=== PATIENT | male | born 2000 | race Caucasian/White ===

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

== ENCOUNTER 2019-03-29 20:22 | Emergency (ER) | payer SELFPAY ==
[2019-03-29 21:07] LABS: ANION GAP 14.6; CHLORIDE,CL 99 mmol/L (101-111); SODIUM,NA 134 mmol/L (135-145)
[2019-03-29] MEDS ORDERED: Sodium Chloride 0.9% 1,000 ML IV ONE (21:08)
--- NOTE | 2019-03-29 21:12 | EDM.PDOC ---
ED HPI GENERAL MEDICAL PROBLEM - General Chief Complaint: Fever Stated Complaint: FEVER Time Seen by Provider: 03/29/19 20:58 Source of Information: Reports: Patient History Limitations: Reports: No Limitations - History of Present Illness INITIAL COMMENTS - FREE TEXT/NARRATIVE: This 18 yo male patient reports to the ED with generalized body aches and a fever. The patient reports his symptoms started 2 days ago and have been getting worse. The patient reports he took Tylenol last night, but has not taken anything today. The patient reports a cough, sore throat and lower back aching. The patient has been attempting to increase his oral fluid intake and using a moist cloth on his forehead to control the temperature. 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 [No Known Home Meds] 03/29/19 [History] Past Medical History Other HEENT History: Sore throat Cardiovascular History: Reports: None Respiratory History: Reports: None Gastrointestinal History: Reports: None Genitourinary History: Reports: None Other Musculoskeletal History: knee problem. Masses to left hip Neurological History: Reports: None Psychiatric History: Reports: Addiction, Anxiety, Depression Endocrine/Metabolic History: Reports: None Hematologic History: Reports: None Immunologic History: Reports: None Oncologic (Cancer) History: Reports: None Dermatologic History: Reports: None - Infectious Disease History Infectious Disease History: Reports: None - Past Surgical History HEENT Surgical History: Reports: Tonsillectomy Social & Family History - Family History Family Medical History: Noncontributory - Tobacco Use Smoking Status *Q: Current Every Day Smoker Years of Tobacco use: 2 Packs/Tins Daily: 0.5 Second Hand Smoke Exposure: Yes - Caffeine Use Caffeine Use: Reports: Coffee, Soda, Tea - Alcohol Use Days Per Week of Alcohol Use: 7 Number of Drinks Per Day: 1 Total Drinks Per Week: 7 - Recreational Drug Use Recreational Drug Use: Yes Recreational Drug Type: Reports: Marijuana/Hashish Recreational Drug Use Frequency: Daily - Sexual History Sexual History: Reports: Sexually Active - Living Situation & Occupation Living situation: Reports: with Family Occupation: Student ED ROS GENERAL - Review of Systems Review Of Systems: ROS reveals no pertinent complaints other than HPI. ED EXAM, GENERAL - Physical Exam Exam: See Below Exam Limited By: No Limitations General Appearance: Alert, WD/WN, Mild Distress Eye Exam: Bilateral Eye: EOMI, Normal Inspection, PERRL Ears: Normal External Exam, Normal Canal, Hearing Grossly Normal, Normal TMs Nose: Normal Inspection, Normal Mucosa, No Blood Throat/Mouth: Normal Lips, Normal Teeth, Normal Gums, Normal Voice, No Airway Compromise, Inflammation (posterior pharynx) Head: Atraumatic, Normocephalic Neck: Normal Inspection, Supple, Non-Tender, Full Range of Motion Respiratory/Chest: No Respiratory Distress, Lungs Clear, Normal Breath Sounds, No Accessory Muscle Use, Chest Non-Tender Cardiovascular: Normal Peripheral Pulses, Regular Rate, Rhythm, No Edema, No Gallop, No JVD, No Murmur, No Rub GI/Abdominal: Normal Bowel Sounds, Soft, Non-Tender, No Organomegaly, No Distention, No Abnormal Bruit, No Mass (Male) Exam: Deferred Rectal (Males) Exam: Deferred Extremities: Normal Inspection, Normal Range of Motion, Non-Tender, Normal Capillary Refill, No Pedal Edema Neurological: Alert, Oriented, CN II-XII Intact, Normal Cognition, Normal Gait, Normal Reflexes, No Motor/Sensory Deficits Psychiatric: Normal Affect, Normal Mood Skin Exam: Dry, Intact, Normal Color, No Rash, Increased Warmth Lymphatic: No Adenopathy Course - Vital Signs Last Recorded V/S: Last Vital Signs Temp 39.9 C H 03/29/19 20:27 Pulse 128 H 03/29/19 20:27 Resp 18 03/29/19 20:27 BP 160/69 H 03/29/19 20:27 Pulse Ox 96 03/29/19 20:27 - Orders/Labs/Meds Orders: Active Orders 24 hr Category Date Time Status CULTURE STREP A CONFIRMATION [RM] Stat Lab 03/29/19 20:53 Results STREP SCRN A RAPID W CULT CONF [RM] Stat Lab 03/29/19 20:53 Results Labs: Laboratory Tests 03/29/19 03/29/19 03/29/19 Range/Units 20:30 20:30 20:50 WBC 7.2 (5.0-10.0) 10^3/uL RBC 5.34 (4.6-6.2) 10^6/uL Hgb 16.1 (14.0-18.0) g/dL Hct 46.0 (40.0-54.0) % MCV 86.1 (80-100) fL MCH 30.1 (27.0-34.0) pg MCHC 35.0 (33.0-35.0) g/dL Plt Count 231 (150-450) 10^3/uL Neut % (Auto) 56.2 (42.2-75.2) % Lymph % (Auto) 21.4 (20.5-50.1) % [place] % (Auto) 22.1 H (2-8) % Eos % (Auto) 0.0 L (1.0-3.0) % Baso % (Auto) 0.3 (0.0-1.0) % Sodium 134 L (135-145) mmol/L Potassium 3.6 (3.6-5.0) mmol/L Chloride 99 L (101-111) mmol/L Carbon Dioxide 24.0 (21.0-31.0) mmol/L Anion Gap 14.6 BUN 12 (7-18) mg/dL Creatinine 1.0 (0.6-1.3) mg/dL Est Cr Clr Drug Dosing 138.14 mL/min Estimated GFR (MDRD) > 60 BUN/Creatinine Ratio 12.00 Glucose 94 (74-105) mg/dL Calcium 9.0 (8.4-10.2) mg/dl Total Bilirubin 0.7 (0.2-1.0) mg/dL AST 33 (10-42) IU/L ALT 30 (10-60) IU/L Alkaline Phosphatase 55 (42-121) IU/L Total Protein 8.1 (6.7-8.2) g/dl Albumin 4.8 (3.2-5.5) g/dl Globulin 3.3 Albumin/Globulin Ratio 1.45 Urine Color Yellow (YELLOW) Urine Appearance Slightly cloudy (CLEAR) Urine pH 6.0 (5.0-9.0) Ur Specific [place] 1.020 (1.005-1.030) Urine Protein Trace H (NEGATIVE) Urine Glucose (UA) Negative (NEGATIVE) Urine Ketones 15 H (NEGATIVE) Urine Occult Blood Trace-intact H (NEGATIVE) Urine Nitrite Negative (NEGATIVE) Urine Bilirubin Small H (NEGATIVE) Urine Urobilinogen 1.0 (0.2-1.0) mg/dL Ur Leukocyte Esterase Negative (NEGATIVE) Urine RBC 0-5 /HPF Urine WBC 5-10 H (0-5/HPF) /HPF Ur Epithelial Cells Few (NOT SEEN) /HPF Urine Bacteria Moderate H (0-FEW/HPF) /HPF Urine Mucus Moderate H (NOT SEEN) /LPF Urine Opiates Screen (NEGATIVE) Ur Oxycodone Screen (NEGATIVE) Urine Methadone Screen (NEGATIVE) Ur Barbiturates Screen (NEGATIVE) U Tricyclic Antidepress (NEGATIVE) Ur Phencyclidine Scrn (NEGATIVE) Ur Amphetamine Screen (NEGATIVE) U Methamphetamines Scrn (NEGATIVE) Urine MDMA Screen (NEGATIVE) U Benzodiazepines Scrn (NEGATIVE) Urine Cocaine Screen (NEGATIVE) U Marijuana (THC) Screen (NEGATIVE) 03/29/19 Range/Units 20:50 WBC (5.0-10.0) 10^3/uL RBC (4.6-6.2) 10^6/uL Hgb (14.0-18.0) g/dL Hct (40.0-54.0) % MCV (80-100) fL MCH (27.0-34.0) pg MCHC (33.0-35.0) g/dL Plt Count (150-450) 10^3/uL Neut % (Auto) (42.2-75.2) % Lymph % (Auto) (20.5-50.1) % [place] % (Auto) (2-8) % Eos % (Auto) (1.0-3.0) % Baso % (Auto) (0.0-1.0) % Sodium (135-145) mmol/L Potassium (3.6-5.0) mmol/L Chloride (101-111) mmol/L Carbon Dioxide (21.0-31.0) mmol/L Anion Gap BUN (7-18) mg/dL Creatinine (0.6-1.3) mg/dL Est Cr Clr Drug Dosing mL/min Estimated GFR (MDRD) BUN/Creatinine Ratio Glucose (74-105) mg/dL Calcium (8.4-10.2) mg/dl Total Bilirubin (0.2-1.0) mg/dL AST (10-42) IU/L ALT (10-60) IU/L Alkaline Phosphatase (42-121) IU/L Total Protein (6.7-8.2) g/dl Albumin (3.2-5.5) g/dl Globulin Albumin/Globulin Ratio Urine Color (YELLOW) Urine Appearance (CLEAR) Urine pH (5.0-9.0) Ur Specific [place] (1.005-1.030) Urine Protein (NEGATIVE) Urine Glucose (UA) (NEGATIVE) Urine Ketones (NEGATIVE) Urine Occult Blood (NEGATIVE) Urine Nitrite (NEGATIVE) Urine Bilirubin (NEGATIVE) Urine Urobilinogen (0.2-1.0) mg/dL Ur Leukocyte Esterase (NEGATIVE) Urine RBC /HPF Urine WBC (0-5/HPF) /HPF Ur Epithelial Cells (NOT SEEN) /HPF Urine Bacteria (0-FEW/HPF) /HPF Urine Mucus (NOT SEEN) /LPF Urine Opiates Screen Negative (NEGATIVE) Ur Oxycodone Screen Positive H (NEGATIVE) Urine Methadone Screen Negative (NEGATIVE) Ur Barbiturates Screen Negative (NEGATIVE) U Tricyclic Antidepress Negative (NEGATIVE) Ur Phencyclidine Scrn Negative (NEGATIVE) Ur Amphetamine Screen Negative (NEGATIVE) U Methamphetamines Scrn Negative (NEGATIVE) Urine MDMA Screen Negative (NEGATIVE) U Benzodiazepines Scrn Negative (NEGATIVE) Urine Cocaine Screen Negative (NEGATIVE) U Marijuana (THC) Screen Positive H (NEGATIVE) Meds: Medications Discontinued Medications Generic Name Dose Route Start Last Admin Trade Name Freq PRN Reason Stop Dose Admin Sodium Chloride 1,000 mls @ 999 mls/hr 03/29/19 21:08 03/29/19 21:11 Normal Saline IV 03/29/19 22:08 999 mls/hr .BOLUS ONE Administration Ketorolac Tromethamine 30 mg 03/29/19 21:17 03/29/19 21:20 Toradol IVPUSH 03/29/19 21:18 30 mg ONETIME ONE Administration - Re-Assessments/Exams Free Text/Narrative Re-Assessment/Exam: 03/29/19 21:18 After reviewing the patient's lab results, the patient was questioned about what other medications he took for symptom relief. Initially, the patient repeated that he had not taken anything else. The patient was advised that his drug screen tested positive for Oxycodone. The patient then remembered that he took one of his mom's pills due to his hip pain. Departure - Departure Time of Disposition: 22:50 Disposition: Home, Self-Care 01 Condition: Fair Clinical Impression: Abdominal pain Qualifiers: Abdominal location: generalized Qualified Code(s): R10.84 - Generalized abdominal pain - Discharge Information *PRESCRIPTION DRUG MONITORING PROGRAM REVIEWED*: Not Applicable *COPY OF PRESCRIPTION DRUG MONITORING REPORT IN PATIENT STEPHANIA: Not Applicable Instructions: Abdominal Pain, Adult, [id number] Forms: ED Department Discharge Care Plan Goals: The patient was advised of the examination, lab and CT results during the visit. The patient was encouraged to continue to increase his oral fluid intake. The patient may taken Tylenol and ibuprofen for temporary symptom relief. If the patient has any additional symptoms or concerns, the patient should either return to the emergency department or visit his primary care facility. - My Orders Last 24 Hours: My Active Orders 03/29/19 20:53 CULTURE STREP A CONFIRMATION [RM] Stat STREP SCRN A RAPID W CULT CONF [RM] Stat - Assessment/Plan Last 24 Hours: My Active Orders 03/29/19 20:53 CULTURE STREP A CONFIRMATION [RM] Stat STREP SCRN A RAPID W CULT CONF [RM] Stat
[2019-03-29] MEDS ORDERED: Ketorolac 30 MG/ML SDV IVPUSH ONE (21:17)
[2019-03-29 23:00] VITALS: BP 128/57; PULSE 100
== END 2019-03-29 23:05 | disposition home or self-care (01) ==
LOC: DL.ED 20:22
DX: R10.84 Generalized abdominal pain (principal); F17.210 Nicotine dependence, cigarettes, uncomplicated; Z88.1 Allergy status to other antibiotic agents
CPT/HCPCS: 36415; 74176; 80053; 80305; 81001; 85025; 87081; 87430; 87804; 96361; 96374; 99283; J1885; J7030

== ENCOUNTER 2019-04-27 11:37 | Emergency (ER) | payer OTHER, BC ==
[2019-04-27 12:03] VITALS: BP 144/62; PULSE 88
--- NOTE | 2019-04-27 12:13 | EDM.PDOC ---
ED HPI GENERAL MEDICAL PROBLEM - General Chief Complaint: Skin Complaint Stated Complaint: BURN R INDEX FINGER Time Seen by Provider: 04/27/19 12:13 Source of Information: Reports: Patient, RN, RN Notes Reviewed History Limitations: Reports: No Limitations - History of Present Illness INITIAL COMMENTS - FREE TEXT/NARRATIVE: Pt presents to ER from home by POV with c/ that he burned his right index finger on hot oil last night while working at [employer]. Patient states he put put triple antibiotic ointment and gauze dressing to the site last night. He states he came to the ER because he doesn't want to get it infected. Pt rates the pain 12/01. He took nothing for the pain so far. Last Tetanus vaccine >10yrs ago per pt. 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 [No Known Home Meds] 03/29/19 [History] Past Medical History Other HEENT History: Sore throat Cardiovascular History: Reports: None Respiratory History: Reports: None Gastrointestinal History: Reports: None Genitourinary History: Reports: None Other Musculoskeletal History: knee problem. Masses to left hip Neurological History: Reports: None Psychiatric History: Reports: Addiction, Anxiety, Depression Endocrine/Metabolic History: Reports: None Hematologic History: Reports: None Immunologic History: Reports: None Oncologic (Cancer) History: Reports: None Dermatologic History: Reports: None - Infectious Disease History Infectious Disease History: Reports: None - Past Surgical History HEENT Surgical History: Reports: Tonsillectomy GI Surgical History: Reports: Appendectomy Social & Family History - Family History Family Medical History: Noncontributory - Tobacco Use Smoking Status *Q: Current Every Day Smoker Years of Tobacco use: 1 Packs/Tins Daily: 0.5 Second Hand Smoke Exposure: No - Caffeine Use Caffeine Use: Reports: Coffee, Energy Drinks - Recreational Drug Use Recreational Drug Type: Reports: Marijuana/Hashish - Sexual History Sexual History: Reports: Sexually Active - Living Situation & Occupation Living situation: Reports: with Family Occupation: Employed ED ROS GENERAL - Review of Systems Review Of Systems: ROS reveals no pertinent complaints other than HPI. ED EXAM, SKIN/RASH Exam: See Below Exam Limited By: No Limitations General Appearance: Alert, WD/WN, No Apparent Distress Respiratory/Chest: No Respiratory Distress Cardiovascular: Normal Peripheral Pulses Extremities: Normal Range of Motion, Normal Capillary Refill. No: Joint Swelling, Increased Warmth, Mottled, Pallor, Redness Neurological: Alert, Oriented, No Motor/Sensory Deficits Psychiatric: Normal Mood Skin: Warm, Dry, Wound/Incision (Rt 2nd finger with 2 area of superficial partial thickness burn 2.5cm x 2cm, and 2cm x 2cm, with ruptured blisters, no erythema or signs of infection.) Location, Skin: Upper Extremity, Right Course - Vital Signs Last Recorded V/S: Last Vital Signs Temp 98 F 04/27/19 11:56 Pulse 88 04/27/19 11:56 Resp 16 04/27/19 11:56 BP 144/62 H 04/27/19 11:56 Pulse Ox 97 04/27/19 11:56 - Orders/Labs/Meds Orders: Active Orders 24 hr Category Date Time Status Vaccines to be Administered [RC] PER UNIT ROUTINE Care 04/27/19 12:17 Ordered Diphth,Pertuss(Acell),Tet Vac [Adacel] Med 04/27/19 12:17 Once 0.5 ml IM .ONCE ONE Lidocaine 5% Med 04/27/19 12:18 Once 15 gm TOP ONETIME ONE Silver Sulfadiazine [Silvadene 1% Cream 50 GM] Med 04/27/19 12:18 Once 50 gm TOP ONETIME ONE Departure - Departure Time of Disposition: 12:24 Disposition: Home, Self-Care 01 Condition: Good Clinical Impression: Second degree burn of finger of right hand Qualifiers: Encounter type: initial encounter Qualified Code(s): T23.221A - Burn of second degree of single right finger (nail) except thumb, initial encounter - Discharge Information *PRESCRIPTION DRUG MONITORING PROGRAM REVIEWED*: Not Applicable *COPY OF PRESCRIPTION DRUG MONITORING REPORT IN PATIENT STEPHANIA: Not Applicable Instructions: Second-Degree Burn, Adult Forms: ED Department Discharge Additional Instructions: Silvadene Ointment: Apply twice a day for five days to area of burn. Cover burn with a sterile dry gauze dressing. Change dressing twice a day, and any time the dressing becomes wet or soiled. Follow up in clinic or return to ER if any signs of infection develop. - My Orders Last 24 Hours: My Active Orders 04/27/19 12:17 Vaccines to be Administered [RC] PER UNIT ROUTINE Diphth,Pertuss(Acell),Tet Vac [Adacel] 0.5 ml IM .ONCE ONE 04/27/19 12:18 Lidocaine 5% 15 gm TOP ONETIME ONE Silver Sulfadiazine [Silvadene 1% Cream 50 GM] 50 gm TOP ONETIME ONE - Assessment/Plan Last 24 Hours: My Active Orders 04/27/19 12:17 Vaccines to be Administered [RC] PER UNIT ROUTINE Diphth,Pertuss(Acell),Tet Vac [Adacel] 0.5 ml IM .ONCE ONE 04/27/19 12:18 Lidocaine 5% 15 gm TOP ONETIME ONE Silver Sulfadiazine [Silvadene 1% Cream 50 GM] 50 gm TOP ONETIME ONE
[2019-04-27] MEDS ORDERED: Diphtheria,Pertussis(Acell),Tetanus Vaccine 0.5 ML SDV IM ONE (12:17)
[2019-04-27] MEDS ORDERED: Lidocaine 5% Oint 35.44 GM Tube TOP ONE (12:18)
[2019-04-27] MEDS ORDERED: Silver Sulfadiazine 1% Crm 50 GM Tube TOP ONE (12:18)
== END 2019-04-27 12:45 | disposition home or self-care (01) ==
LOC: DL.ED 11:37
DX: T23.221A Burn of second degree of single right finger (nail) except thumb, initial encounter (principal); T31.0 Burns involving less than 10% of body surface; F17.210 Nicotine dependence, cigarettes, uncomplicated; Z23 Encounter for immunization; Z88.0 Allergy status to penicillin; X10.2XXA Contact with fats and cooking oils, initial encounter; Y92.89 Other specified places as the place of occurrence of the external cause; Y93.89 Activity, other specified; Y92.511 Restaurant or cafe as the place of occurrence of the external cause; Y99.0 Civilian activity done for income or pay
CPT/HCPCS: 16020; 90471; 90715; 99283; A9270

== ENCOUNTER 2019-09-13 11:07 | Emergency (ER) | payer BC ==
[2019-09-13 11:23] VITALS: BP 126/65; PULSE 131
--- NOTE | 2019-09-13 16:01 | EDM.PDOC ---
Scribed by Rochelle Calderon 09/13/19 1156 for Di Suárez PA-C ED HPI GENERAL MEDICAL PROBLEM - General Chief Complaint: Fever Stated Complaint: FEVER, CHEST TIGHTNESS Time Seen by Provider: 09/13/19 11:15 Source of Information: Reports: Patient, RN, RN Notes Reviewed History Limitations: Reports: No Limitations - History of Present Illness INITIAL COMMENTS - FREE TEXT/NARRATIVE: Patient presents to ER with complaint fever, cough and body aches. His fever is 100.4. He has tried Robitussin for his cough. Onset: Gradual Duration: Getting Worse Location: Reports: Chest Quality: Reports: Ache Severity: Moderate Improves with: Reports: None Worsens with: Reports: None Associated Symptoms: Reports: No Other Symptoms - Related Data Allergies Allergy/AdvReac Type Severity Reaction Status Date / Time amoxicillin Allergy Swelling Verified 09/13/19 11:14 Home Meds: Home Meds . [No Known Home Meds] 03/29/19 [History] Past Medical History Other HEENT History: Sore throat Cardiovascular History: Reports: None Respiratory History: Reports: None Gastrointestinal History: Reports: None Genitourinary History: Reports: None Other Musculoskeletal History: knee problem. Masses to left hip Neurological History: Reports: None Psychiatric History: Reports: Addiction, Anxiety, Depression Endocrine/Metabolic History: Reports: None Hematologic History: Reports: None Immunologic History: Reports: None Oncologic (Cancer) History: Reports: None Dermatologic History: Reports: None - Infectious Disease History Infectious Disease History: Reports: None - Past Surgical History HEENT Surgical History: Reports: Tonsillectomy GI Surgical History: Reports: Appendectomy Social & Family History - Family History Family Medical History: Noncontributory - Caffeine Use Caffeine Use: Reports: Coffee, Energy Drinks - Sexual History Sexual History: Reports: Sexually Active - Living Situation & Occupation Living situation: Reports: with Family Occupation: Employed ED ROS GENERAL - Review of Systems Review Of Systems: Comprehensive ROS is negative, except as noted in HPI. ED EXAM, GENERAL - Physical Exam Exam: See Below Exam Limited By: No Limitations General Appearance: Alert, WD/WN, No Apparent Distress Eye Exam: Bilateral Eye: Normal Inspection Ears: Normal External Exam, Normal Canal, Hearing Grossly Normal, Normal TMs Nose: No: Nasal Drainage Throat/Mouth: Other (mildly red throat. ) Head: Atraumatic, Normocephalic Neck: Normal Inspection, Supple, Non-Tender, Full Range of Motion Respiratory/Chest: Other (Lung sounds are clear. ) Cardiovascular: Normal Peripheral Pulses, Regular Rate, Rhythm, No Edema, No Gallop, No JVD, No Murmur, No Rub GI/Abdominal: Normal Bowel Sounds, Soft, Non-Tender, No Organomegaly, No Distention, No Abnormal Bruit, No Mass (Male) Exam: Deferred Rectal (Males) Exam: Deferred Back Exam: Normal Inspection, Full Range of Motion, NT Extremities: Normal Inspection, Normal Range of Motion, Non-Tender, Normal Capillary Refill, No Pedal Edema Neurological: Alert, Oriented, CN II-XII Intact, Normal Cognition, Normal Gait, Normal Reflexes, No Motor/Sensory Deficits Psychiatric: Normal Affect, Normal Mood Skin Exam: Warm, Dry, Intact, Normal Color, No Rash Lymphatic: No Adenopathy Course - Vital Signs Last Recorded V/S: Last Vital Signs Temp 100.4 F 09/13/19 11:09 Pulse 131 H 09/13/19 11:09 Resp 18 09/13/19 11:09 BP 126/65 09/13/19 11:09 Pulse Ox 98 09/13/19 11:09 - Orders/Labs/Meds Orders: Active Orders 24 hr Category Date Time Status CULTURE STREP A CONFIRMATION [RM] Stat Lab 09/13/19 11:18 Results STREP SCRN A RAPID W CULT CONF [RM] Stat Lab 09/13/19 11:18 Results Isolation [COMM] Routine Oth 09/13/19 11:33 Active Departure - Departure Time of Disposition: 11:46 Disposition: Home, Self-Care 01 Condition: Good Clinical Impression: URI with cough and congestion - Discharge Information *PRESCRIPTION DRUG MONITORING PROGRAM REVIEWED*: No *COPY OF PRESCRIPTION DRUG MONITORING REPORT IN PATIENT STEPHANIA: No Instructions: Upper Respiratory Infection, Adult, [id number] Forms: ED Department Discharge Additional Instructions: Continue using robitussin, muccinex Increase fluids frequent warm liquids follow up if symptoms worsen tylenol every 4 hours as needed for fever good hand washing limit exposure to others cover mouth with cough tesselon 200mg one every 8 hours as needed for severe cough Sepsis Event Note - Focused Exam Vital Signs: Vital Signs Temp Pulse Resp BP Pulse Ox 09/13/19 11:09 100.4 F 131 H 18 126/65 98 Date Exam was Performed: 09/13/19 Time Exam was Performed: 16:00 - My Orders Last 24 Hours: My Active Orders 09/13/19 11:18 CULTURE STREP A CONFIRMATION [RM] Stat STREP SCRN A RAPID W CULT CONF [RM] Stat 09/13/19 11:33 Isolation [COMM] Routine - Assessment/Plan Last 24 Hours: My Active Orders 09/13/19 11:18 CULTURE STREP A CONFIRMATION [RM] Stat STREP SCRN A RAPID W CULT CONF [RM] Stat 09/13/19 11:33 Isolation [COMM] Routine I have read and agree with the documentation that has been completed regarding this visit. By signing this record, I attest that the documentation was completed in my physical presence and is an accurate record of the encounter.
== END 2019-09-13 11:53 | disposition home or self-care (01) ==
LOC: DL.ED 11:07
DX: J06.9 Acute upper respiratory infection, unspecified (principal); Z88.1 Allergy status to other antibiotic agents
CPT/HCPCS: 87081; 87430; 87804; 99284

== ENCOUNTER 2019-09-14 20:45 | Emergency (ER) | payer BC ==
[2019-09-14 20:55] VITALS: BP 135/79
[2019-09-14] MEDS ORDERED: Acetaminophen 325 MG Tab PO ONE (21:04)
[2019-09-14] MEDS ORDERED: Acetaminophen 325 MG Tab ONE (21:10)
--- NOTE | 2019-09-14 21:18 | EDM.PDOC ---
ED HPI GENERAL MEDICAL PROBLEM - General Chief Complaint: Fever Stated Complaint: FEVER Time Seen by Provider: 09/14/19 21:16 Source of Information: Reports: Patient History Limitations: Reports: No Limitations - History of Present Illness INITIAL COMMENTS - FREE TEXT/NARRATIVE: ED with continued sore throat and cough, no vomiting. Has not taken anything for pain today. Tolerating fluids. Patient seen in ED yesterday. Lower Back Pain Score (Numeric/FACES): 5 - Related Data Allergies Allergy/AdvReac Type Severity Reaction Status Date / Time amoxicillin Allergy Swelling Verified 09/14/19 20:51 Home Meds: Home Meds . [No Known Home Meds] 03/29/19 [History] Past Medical History Other HEENT History: Sore throat Cardiovascular History: Reports: None Respiratory History: Reports: None Gastrointestinal History: Reports: None Genitourinary History: Reports: None Other Musculoskeletal History: knee problem. Masses to left hip Neurological History: Reports: None Psychiatric History: Reports: Addiction, Anxiety, Depression Endocrine/Metabolic History: Reports: None Hematologic History: Reports: None Immunologic History: Reports: None Oncologic (Cancer) History: Reports: None Dermatologic History: Reports: None - Infectious Disease History Infectious Disease History: Reports: None - Past Surgical History HEENT Surgical History: Reports: Tonsillectomy GI Surgical History: Reports: Appendectomy Social & Family History - Family History Family Medical History: Noncontributory - Tobacco Use Smoking Status *Q: Never Smoker - Caffeine Use Caffeine Use: Reports: Coffee, Energy Drinks - Recreational Drug Use Recreational Drug Use: Yes Recreational Drug Type: Reports: Marijuana/Hashish Recreational Drug Use Frequency: Daily - Sexual History Sexual History: Reports: Sexually Active - Living Situation & Occupation Living situation: Reports: with Family Occupation: Employed ED ROS ENT - Review of Systems Review Of Systems: See Below Constitutional: Reports: Fever, Chills, Malaise HEENT: Reports: Throat Pain Respiratory: Denies: Shortness of Breath, Wheezing GI/Abdominal: Reports: Diarrhea Musculoskeletal: Reports: Back Pain (with cough) Skin: Reports: No Symptoms ED EXAM, ENT - Physical Exam Exam: See Below Exam Limited By: No Limitations General Appearance: Alert, Mild Distress Eye Exam: Bilateral Eye: EOMI Ears: Normal External Exam Nose: Normal Inspection Mouth/Throat: Pharyngeal Erythema (minimal), Other (mucus membranes moist). No : Tonsillar Erythema, Tonsillar Exudates, Uvular Deviation, Uvular Edema Head: Atraumatic, Normocephalic Neck: Normal Inspection, Full Range of Motion Respiratory/Chest: No Respiratory Distress, Lungs Clear, Normal Breath Sounds Cardiovascular: Normal Peripheral Pulses, Tachycardia GI/Abdominal: Normal Bowel Sounds, Soft Extremities: Normal Inspection Neurological: Alert, Normal Cognition Skin: Warm, Dry, Intact Course - Vital Signs Last Recorded V/S: Last Vital Signs Temp 99 F 09/14/19 20:51 Pulse 100 09/14/19 21:33 Resp 18 09/14/19 20:51 BP 135/79 09/14/19 20:51 Pulse Ox 97 09/14/19 20:51 - Orders/Labs/Meds Meds: Medications Discontinued Medications Generic Name Dose Route Start Last Admin Trade Name Luke PRN Reason Stop Dose Admin Acetaminophen 650 mg 09/14/19 21:04 09/14/19 21:09 Tylenol PO 09/14/19 21:05 650 mg NOW ONE Administration Acetaminophen Confirm 09/14/19 21:10 Tylenol Administered 09/14/19 21:11 Dose 325 mg .ROUTE .STK-MED ONE Departure - Departure Time of Disposition: 21:32 Disposition: Home, Self-Care 01 Condition: Good Clinical Impression: Pharyngitis Qualifiers: Pharyngitis/tonsillitis etiology: unspecified etiology Qualified Code(s): J02.9 - Acute pharyngitis, unspecified - Discharge Information *PRESCRIPTION DRUG MONITORING PROGRAM REVIEWED*: No *COPY OF PRESCRIPTION DRUG MONITORING REPORT IN PATIENT STEPHANIA: No Instructions: Viral Respiratory Infection, [id number], Sore Throat, Easy-to- Read Forms: ED Department Discharge Additional Instructions: increase fluids tylenol 650mg every 4 hours as needed for fever/ discomfort salt water gargles with warm water increase vitamin c and zinc intake rest limit exposure to others expecially if coughing or low grade fever frequent hand washing Sepsis Event Note - Evaluation Sepsis Screening Result: No Definite Risk - Focused Exam Vital Signs: Vital Signs Temp Pulse Resp BP Pulse Ox 09/14/19 21:33 100 09/14/19 20:51 99 F 118 H 18 135/79 97 Date Exam was Performed: 09/15/19 Time Exam was Performed: 02:57
[2019-09-14 21:33] VITALS: PULSE 100
== END 2019-09-14 21:38 | disposition home or self-care (01) ==
LOC: DL.ED 20:45
DX: J02.9 Acute pharyngitis, unspecified (principal); Z88.1 Allergy status to other antibiotic agents
CPT/HCPCS: 99283; A9270

== ENCOUNTER 2020-05-06 21:48 | Emergency (ER) | payer SELFPAY ==
[2020-05-06 22:56] VITALS: BP 110/46; PULSE 121
[2020-05-06] MEDS ORDERED: Lidocaine 1% 30 ML SDV INJECT ONE (23:08)
[2020-05-06] MEDS ORDERED: Bacitracin Oint 1 GM U/D Packet TOP ONE (23:09)
== END 2020-05-06 23:21 | disposition left against medical advice (07) ==
LOC: DL.ED 21:48
DX: Z53.21 Procedure and treatment not carried out due to patient leaving prior to being seen by health care provider (principal)

== ENCOUNTER 2020-05-07 11:40 | Emergency (ER) | payer SELFPAY ==
[2020-05-07 11:53] VITALS: BP 137/97; PULSE 88
[2020-05-07] MEDS ORDERED: Lidocaine 1% 30 ML SDV INJECT ONE (11:56)
--- NOTE | 2020-05-07 11:58 | EDM.PDOC ---
ED HPI GENERAL MEDICAL PROBLEM - General Chief Complaint: Laceration Stated Complaint: NEEDS STITCHES Time Seen by Provider: 05/07/20 11:55 Source of Information: Reports: Patient History Limitations: Reports: No Limitations - History of Present Illness INITIAL COMMENTS - FREE TEXT/NARRATIVE: Patient is here today for a laceration to the left heel. It occured last night around midnight. He was doing a summersault with his kid when his foot hit a door frame. He reports he may have had too much to drink as well. He came to the ER last night, but had to leave without being seen as the wait was so long. No numbness or tingling in the foot. He noted that it is pulling open and he thinks he needs stitches. Onset Date: 05/06/20 Left Foot Pain Score (Numeric/FACES): 6 - Related Data Allergies Allergy/AdvReac Type Severity Reaction Status Date / Time amoxicillin Allergy Swelling Verified 05/07/20 11:49 Home Meds: Home Meds . [No Known Home Meds] 03/29/19 [History] Past Medical History Other HEENT History: Sore throat Cardiovascular History: Reports: None Respiratory History: Reports: None Gastrointestinal History: Reports: None Genitourinary History: Reports: None Other Musculoskeletal History: knee problem. Masses to left hip Neurological History: Reports: None Psychiatric History: Reports: Addiction, Anxiety, Depression Endocrine/Metabolic History: Reports: None Hematologic History: Reports: None Immunologic History: Reports: None Oncologic (Cancer) History: Reports: None Dermatologic History: Reports: None - Infectious Disease History Infectious Disease History: Reports: None - Past Surgical History HEENT Surgical History: Reports: Tonsillectomy GI Surgical History: Reports: Appendectomy Social & Family History - Family History Family Medical History: No Pertinent Family History - Caffeine Use Caffeine Use: Reports: None - Sexual History Sexual History: Reports: Sexually Active - Living Situation & Occupation Living situation: Reports: with Family Occupation: Employed ED ROS GENERAL - Review of Systems Review Of Systems: Comprehensive ROS is negative, except as noted in HPI. ED EXAM, SKIN/RASH Exam: See Below Exam Limited By: No Limitations General Appearance: Alert, WD/WN, No Apparent Distress Eye Exam: Bilateral Eye: Normal Inspection Ears: Normal External Exam Head: Atraumatic, Normocephalic Neck: Normal Inspection, Supple, Non-Tender, Full Range of Motion Respiratory/Chest: No Respiratory Distress, Lungs Clear, Normal Breath Sounds, No Accessory Muscle Use, Chest Non-Tender Cardiovascular: Normal Peripheral Pulses, Regular Rate, Rhythm, No Edema, No Murmur, No Rub GI/Abdominal: Soft, Non-Tender, No Distention (Male) Exam: Deferred Rectal (Males) Exam: Deferred Back Exam: Normal Inspection, Full Range of Motion, NT Extremities: Normal Inspection, Normal Range of Motion, Non-Tender, No Pedal Edema, Normal Capillary Refill Neurological: Alert, Oriented, Normal Cognition, Normal Gait, Normal Reflexes, No Motor/Sensory Deficits Psychiatric: Normal Affect, Normal Mood Skin: Warm, Dry, Normal Color, No Rash, Wound/Incision (left posterior heel, about 4 cm long, no significant erythema or other signs of infection) Lymphatic: No Adenopathy ED SKIN PROCEDURES - Laceration/Wound Repair Left Posterior Foot Appearance: Subcutaneous Distal NVT: Neuro & Vascular Intact, No Tendon Injury Anesthetic Type: Local Local Anesthesia - Lidocaine (Xylocaine): 1% Plain Local Anesthetic Volume: 5cc Skin Prep: Chlorhexidine (Hibiciens) Exploration/Debridement/Repair: Wound Explored, Minimally Undermined, No Foreign Material Found Closed with: Sutures Lac/Wound length In cm: 4 Suture Size: 5-0 # of Sutures: 4 Suture Type: Nylon, Interrupted, Simple Drain Placement: No Sterile Dressing Applied: Nurse Tetanus Status Addressed: Yes Complications: No Course - Vital Signs Last Recorded V/S: Last Vital Signs Temp 98.9 F 05/07/20 11:50 Pulse 88 05/07/20 11:50 Resp 16 05/07/20 11:50 BP 137/97 H 05/07/20 11:50 Pulse Ox 98 05/07/20 11:50 - Orders/Labs/Meds Meds: Medications Discontinued Medications Generic Name Dose Route Start Last Admin Trade Name Freq PRN Reason Stop Dose Admin Lidocaine HCl 30 ml 05/07/20 11:56 05/07/20 12:02 Xylocaine-Mpf 1% INJECT 05/07/20 11:57 30 ml ONETIME ONE Administration Departure - Departure Time of Disposition: 12:22 Disposition: Home, Self-Care 01 Condition: Good Clinical Impression: Laceration of left heel Qualifiers: Encounter type: initial encounter Qualified Code(s): S91.312A - Laceration without foreign body, left foot, initial encounter - Discharge Information Instructions: Laceration Care, Adult, [id number], Sutures, Mita, or Adhesive Wound Closure, [id number] Forms: ED Department Discharge Additional Instructions: Keep wound clean and dry Follow up with primary care provider in 7-10 days for suture removal Sepsis Event Note (ED) - Evaluation Sepsis Screening Result: No Definite Risk - Focused Exam Vital Signs: Vital Signs Temp Pulse Resp BP Pulse Ox 05/07/20 11:50 98.9 F 88 16 137/97 H 98
== END 2020-05-07 12:30 | disposition home or self-care (01) ==
LOC: DL.ED 11:40
DX: S91.312A Laceration without foreign body, left foot, initial encounter (principal); Z88.1 Allergy status to other antibiotic agents; W22.8XXA Striking against or struck by other objects, initial encounter; Y93.89 Activity, other specified
CPT/HCPCS: 12002; 99282; J2001

== ENCOUNTER 2020-09-04 12:59 | Emergency (ER) | payer SELFPAY ==
[2020-09-04 13:32] VITALS: BP 125/71; PULSE 98
== END 2020-09-04 15:14 | disposition left against medical advice (07) ==
LOC: DL.ED 12:59
DX: Z53.21 Procedure and treatment not carried out due to patient leaving prior to being seen by health care provider (principal)

== ENCOUNTER 2021-02-20 19:25 | Emergency (ER) | payer SELFPAY ==
[2021-02-20 20:13] VITALS: BP 133/46; PULSE 62
[2021-02-20] MEDS ORDERED: Iopamidol 612 MG/ML 100 ML Bottle IVPUSH ONE (20:26)
--- NOTE | 2021-02-20 20:29 | EDM.PDOC ---
ED HPI GENERAL MEDICAL PROBLEM - General Chief Complaint: Abdominal Pain Stated Complaint: HERNIA, STOMACH 2 NIGHTS AGO, PAIN Time Seen by Provider: 02/20/21 20:15 Source of Information: Reports: Patient, RN History Limitations: Reports: No Limitations - History of Present Illness INITIAL COMMENTS - FREE TEXT/NARRATIVE: umbilical hernia for past year, has not been seen by PCP recently. Increased pain above navel and hard area x 2 days, nauseated last charlette, no fever or vomiting. Feel constipated past 2 weeks, No difficulty with urination. Pain worse with positional changes or attempting to lie on stomach. Tried alternating tylenol and ibuprofen with out much relief. Rates pain 01/31 - Related Data Allergies Allergy/AdvReac Type Severity Reaction Status Date / Time amoxicillin Allergy Swelling Verified 02/20/21 20:11 Home Meds: Home Meds . [No Known Home Meds] 03/29/19 [History] Past Medical History Other HEENT History: Sore throat Cardiovascular History: Reports: None Respiratory History: Reports: None Gastrointestinal History: Reports: None Genitourinary History: Reports: None Other Musculoskeletal History: knee problem. Masses to left hip Neurological History: Reports: None Psychiatric History: Reports: Addiction, Anxiety, Depression Endocrine/Metabolic History: Reports: None Hematologic History: Reports: None Immunologic History: Reports: None Oncologic (Cancer) History: Reports: None Dermatologic History: Reports: None - Infectious Disease History Infectious Disease History: Reports: None - Past Surgical History HEENT Surgical History: Reports: Tonsillectomy GI Surgical History: Reports: Appendectomy Social & Family History - Family History Family Medical History: No Pertinent Family History - Tobacco Use Tobacco Use Status *Q: Former Tobacco User Used Tobacco, but Quit: Yes Month/Year Tobacco Last Used: 2018 - Caffeine Use Caffeine Use: Reports: Energy Drinks, Soda - Recreational Drug Use Recreational Drug Use: Yes Recreational Drug Type: Reports: Marijuana/Hashish Other Recreational Drug Type: medical marijuana - Sexual History Sexual History: Reports: Sexually Active - Living Situation & Occupation Living situation: Reports: with Family Occupation: Employed ED ROS GENERAL - Review of Systems Review Of Systems: Comprehensive ROS is negative, except as noted in HPI. ED EXAM, GI/ABD - Physical Exam Exam: See Below Exam Limited By: No Limitations General Appearance: Alert, Anxious, Mild Distress Eyes: Bilateral: EOMI Ears: Normal External Exam Nose: Normal Inspection Throat/Mouth: Normal Inspection Head: Atraumatic, Normocephalic Neck: Normal Inspection Respiratory/Chest: No Respiratory Distress Cardiovascular: Normal Peripheral Pulses, Regular Rate, Rhythm GI/Abdominal Exam: Normal Bowel Sounds, Soft, No Distention, Tender (above umbilicus, small hard pea size mass at tender area). No: Guarding, Hepatomegaly , Splenomegaly Back Exam: Full Range of Motion Extremities: Normal Inspection Neurological: Alert, Normal Cognition Psychiatric: Anxious Skin Exam: Warm, Dry, Intact, Normal Color Course - Vital Signs Last Recorded V/S: Last Vital Signs Temp 98.5 F 02/20/21 20:12 Pulse 62 02/20/21 20:12 Resp 16 02/20/21 20:12 BP 133/46 L 02/20/21 20:12 Pulse Ox 100 02/20/21 20:12 - Orders/Labs/Meds Labs: Laboratory Tests 02/20/21 02/20/21 02/20/21 Range/Units 20:32 20:32 21:09 WBC 5.5 (5.0-10.0) 10^3/uL RBC 4.31 L (4.6-6.2) 10^6/uL Hgb 12.7 L D (14.0-18.0) g/dL Hct 38.4 L (40.0-54.0) % MCV 89.1 D (80-100) fL MCH 29.5 (27.0-34.0) pg MCHC 33.1 (33.0-35.0) g/dL Plt Count 233 (150-450) 10^3/uL Neut % (Auto) 46.6 (42.2-75.2) % Lymph % (Auto) 40.0 (20.5-50.1) % Hart % (Auto) 10.9 H (2-8) % Eos % (Auto) 2.0 (1.0-3.0) % Baso % (Auto) 0.5 (0.0-1.0) % Sodium (136-145) mmol/L Potassium (3.5-5.1) mmol/L Chloride (98-107) mmol/L Carbon Dioxide (21-32) mmol/L Anion Gap (7-13) mEq/L BUN (7-18) mg/dL Creatinine (0.70-1.30) mg/dL Est Cr Clr Drug Dosing mL/min Estimated GFR (MDRD) BUN/Creatinine Ratio (No establ ref range) Glucose (70-99) mg/dL Calcium (8.5-10.1) mg/dL Total Bilirubin (0.2-1.0) mg/dL AST (15-37) U/L ALT (16-63) U/L Alkaline Phosphatase (46-116) U/L Total Protein (6.4-8.2) g/dL Albumin (3.4-5.0) g/dL Globulin Albumin/Globulin Ratio Urine Color Yellow (YELLOW) Urine Appearance Clear (CLEAR) Urine pH 6.0 (5.0-9.0) Ur Specific [place] >= 1.030 (1.005-1.030) Urine Protein Negative (NEGATIVE) Urine Glucose (UA) Negative (NEGATIVE) Urine Ketones Negative (NEGATIVE) Urine Occult Blood Negative (NEGATIVE) Urine Nitrite Negative (NEGATIVE) Urine Bilirubin Negative (NEGATIVE) Urine Urobilinogen 0.2 (0.2-1.0) mg/dL Ur Leukocyte Esterase Negative (NEGATIVE) Urine Opiates Screen Negative (NEGATIVE) Ur Oxycodone Screen Negative (NEGATIVE) Urine Methadone Screen Negative (NEGATIVE) Ur Barbiturates Screen Negative (NEGATIVE) U Tricyclic Antidepress Negative (NEGATIVE) Ur Phencyclidine Scrn Negative (NEGATIVE) Ur Amphetamine Screen Negative (NEGATIVE) U Methamphetamines Scrn Negative (NEGATIVE) Urine MDMA Screen Negative (NEGATIVE) U Benzodiazepines Scrn Negative (NEGATIVE) Urine Cocaine Screen Negative (NEGATIVE) U Marijuana (THC) Screen Positive H (NEGATIVE) 02/20/21 Range/Units 21:09 WBC (5.0-10.0) 10^3/uL RBC (4.6-6.2) 10^6/uL Hgb (14.0-18.0) g/dL Hct (40.0-54.0) % MCV (80-100) fL MCH (27.0-34.0) pg MCHC (33.0-35.0) g/dL Plt Count (150-450) 10^3/uL Neut % (Auto) (42.2-75.2) % Lymph % (Auto) (20.5-50.1) % Hart % (Auto) (2-8) % Eos % (Auto) (1.0-3.0) % Baso % (Auto) (0.0-1.0) % Sodium 142 (136-145) mmol/L Potassium 3.8 (3.5-5.1) mmol/L Chloride 104 (98-107) mmol/L Carbon Dioxide 32 (21-32) mmol/L Anion Gap 9.8 (7-13) mEq/L BUN 11 (7-18) mg/dL Creatinine 0.74 (0.70-1.30) mg/dL Est Cr Clr Drug Dosing 183.59 mL/min Estimated GFR (MDRD) > 60 BUN/Creatinine Ratio 14.9 (No establ ref range) Glucose 88 (70-99) mg/dL Calcium 8.4 L (8.5-10.1) mg/dL Total Bilirubin 0.3 (0.2-1.0) mg/dL AST 15 (15-37) U/L ALT 27 (16-63) U/L Alkaline Phosphatase 56 (46-116) U/L Total Protein 6.4 (6.4-8.2) g/dL Albumin 3.7 (3.4-5.0) g/dL Globulin 2.7 Albumin/Globulin Ratio 1.4 Urine Color (YELLOW) Urine Appearance (CLEAR) Urine pH (5.0-9.0) Ur Specific [place] (1.005-1.030) Urine Protein (NEGATIVE) Urine Glucose (UA) (NEGATIVE) Urine Ketones (NEGATIVE) Urine Occult Blood (NEGATIVE) Urine Nitrite (NEGATIVE) Urine Bilirubin (NEGATIVE) Urine Urobilinogen (0.2-1.0) mg/dL Ur Leukocyte Esterase (NEGATIVE) Urine Opiates Screen (NEGATIVE) Ur Oxycodone Screen (NEGATIVE) Urine Methadone Screen (NEGATIVE) Ur Barbiturates Screen (NEGATIVE) U Tricyclic Antidepress (NEGATIVE) Ur Phencyclidine Scrn (NEGATIVE) Ur Amphetamine Screen (NEGATIVE) U Methamphetamines Scrn (NEGATIVE) Urine MDMA Screen (NEGATIVE) U Benzodiazepines Scrn (NEGATIVE) Urine Cocaine Screen (NEGATIVE) U Marijuana (THC) Screen (NEGATIVE) Meds: Medications Discontinued Medications Generic Name Dose Route Start Last Admin Trade Name Freq PRN Reason Stop Dose Admin Iopamidol 100 ml 02/20/21 20:26 02/20/21 21:09 Iopamidol 612 Mg/Ml 100 Ml Bottle IVPUSH 02/20/21 20:27 75 ml ONETIME ONE Administration Departure - Departure Time of Disposition: 22:09 Disposition: Home, Self-Care 01 Condition: Good Clinical Impression: Abdominal pain Qualifiers: Abdominal location: periumbilical Qualified Code(s): R10.33 - Periumbilical pain - Discharge Information *PRESCRIPTION DRUG MONITORING PROGRAM REVIEWED*: No *COPY OF PRESCRIPTION DRUG MONITORING REPORT IN PATIENT STEPHANIA: No Instructions: Abdominal Pain, Adult, Constipation, Adult, [id number] Forms: ED Department Discharge Additional Instructions: increase fluids increase fruit and fiber in diet miralax one capful daily in 8 ounces liquid as needed for constipation clinic follow up if continued pain, urgent follow up sever pain fever and vomiting alternate tylenol 500mg and ibuprofen 600mg every 4 hours as needed for discomfort Sepsis Event Note (ED) - Evaluation Sepsis Screening Result: No Definite Risk
--- NOTE | 2021-02-20 21:09 | CT ---
PROCEDURE INFORMATION: Exam: CT Abdomen And Pelvis With Contrast Exam date and time: 02/20/2021 8:48 PM Age: 20 years old Clinical indication: Pain; Other: Umbilical; Prior surgery; Surgery date: 6+ months; Surgery type: Appendectomy; Additional info: Umbilical pain, constipation, TECHNIQUE: Imaging protocol: Computed tomography of the abdomen and pelvis with contrast. Radiation optimization: All CT scans at this facility use at least one of these dose optimization techniques: automated exposure control; mA and/or kV adjustment per patient size (includes targeted exams where dose is matched to clinical indication); or iterative reconstruction. Contrast material: ISOVUE 300; Contrast volume: 75 ml; Contrast route: INTRAVENOUS (IV); COMPARISON: No relevant prior studies available. FINDINGS: Liver: Normal. No mass. Gallbladder and bile ducts: Normal. No calcified stones. No ductal dilation. Pancreas: Normal. No ductal dilation. Spleen: Normal. No splenomegaly. Adrenal glands: Normal. No mass. Kidneys and ureters: Normal. No hydronephrosis. Stomach and bowel: Unremarkable. No obstruction. No mucosal thickening. Appendix: There has been an appendectomy. Intraperitoneal space: Unremarkable. No free air. No significant fluid collection. Vasculature: Unremarkable. No abdominal aortic aneurysm. Lymph nodes: Unremarkable. No enlarged lymph nodes. Urinary bladder: Unremarkable as visualized. Reproductive: Unremarkable as visualized. 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 Soft tissues: Unremarkable. IMPRESSION: No acute findings.
[2021-02-20 21:49] LABS: ANION GAP 9.8 mEq/L (7-13); CHLORIDE,CL 104 mmol/L (98-107); SODIUM,NA 142 mmol/L (136-145)
[2021-02-20 22:07] LABS: AMPHETAMINES,URINE NEGATIVE (NEGATIVE); BARBITURATES,URINE NEGATIVE (NEGATIVE); BENZODIAZEPINE,URINE NEGATIVE (NEGATIVE); MDMA (ECSTASY), URINE NEGATIVE (NEGATIVE); METHADONE,URINE NEGATIVE (NEGATIVE); METHAMPHETAMINES,URINE NEGATIVE (NEGATIVE); OPIATES,URINE NEGATIVE (NEGATIVE); OXYCODONE,URINE NEGATIVE (NEGATIVE); PHENCYCLIDINE,URINE NEGATIVE (NEGATIVE); TCA,URINE NEGATIVE (NEGATIVE)
== END 2021-02-20 22:16 | disposition home or self-care (01) ==
LOC: DL.ED 19:25
DX: R10.33 Periumbilical pain (principal); Z88.0 Allergy status to penicillin; Z90.49 Acquired absence of other specified parts of digestive tract; Z72.0 Tobacco use
CPT/HCPCS: 36415; 74177; 80053; 80305; 81003; 85025; 99284; Q9967

== ENCOUNTER 2021-12-20 21:07 | Emergency (ER) | payer BC, OTHER ==
[2021-12-20] MEDS ORDERED: Acetaminophen/HYDROcodone 325-10 MG Tab PO ONE (21:08)
[2021-12-20] MEDS ORDERED: Sodium Chloride 0.9% 10 ML Syringe FLUSH PRN (22:01)
[2021-12-20] MEDS ORDERED: HYDROmorphone 0.5 MG/0.5 ML Syringe IVPUSH ONE (22:01)
[2021-12-20] MEDS ORDERED: Ondansetron 4 MG/2 ML SDV IVPUSH ONE (22:01)
[2021-12-20] MEDS ORDERED: ceFAZolin 1 GM in Sodium Chloride 0.9% 50 ML IV ONE (22:50)
[2021-12-20] MEDS ORDERED: Acetaminophen/HYDROcodone 325-10 MG Tab ONE (23:29)
[2021-12-20 23:48] VITALS: BP 140/74; PULSE 90
== END 2021-12-20 23:51 | disposition home or self-care (01) ==
LOC: DL.ED 21:07
DX: S02.40CA Maxillary fracture, right side, initial encounter for closed fracture (principal); S05.11XA Contusion of eyeball and orbital tissues, right eye, initial encounter; Z88.0 Allergy status to penicillin; W22.09XA Striking against other stationary object, initial encounter
CPT/HCPCS: 70450; 70486; 96365; 96375; 99284; A9270; J0690; J1170; J2405; J3490

== ENCOUNTER 2022-11-04 00:52 | Emergency (ER) | payer SELFPAY ==
[2022-11-04 01:30] VITALS: BP 156/91; PULSE 97
[2022-11-04 01:33] LABS: BASOPHILS PERCENT AUTO 0.5 % (0.0-1.0); EOSINOPHILS PERCENT AUTO 1.4 % (1.0-3.0); HEMATOCRIT 40.9 % (40.0-54.0); HEMOGLOBIN 13.9 g/dL (14.0-18.0); LYMPHOCYTES PERCENT AUTO 28.5 % (20.5-50.1); MEAN CORPUSCULAR HEMOGLOBIN 29.3 pg (27.0-34.0); MEAN CORPUSCULAR VOLUME 86.1 fL (80-100); MONOCYTES PERCENT AUTO 11.1 % (2-8); NEUTROPHILS PERCENT AUTO 58.5 % (42.2-75.2); PLATELET COUNT,PLT 312 10^3/uL (150-450); RED BLOOD CELL COUNT 4.75 10^6/uL (4.6-6.2); WHITE BLOOD CELL COUNT,WBC 6.6 10^3/uL (5.0-10.0)
[2022-11-04 01:34] LABS: APPEARANCE,URINE CLEAR (CLEAR); BILIRUBIN,URINE NEGATIVE (NEGATIVE); COLOR,URINE YELLOW (YELLOW); GLUCOSE,URINE NEGATIVE (NEGATIVE); KETONES,URINE NEGATIVE (NEGATIVE); LEUKOCYTE ESTERASE,URINE NEGATIVE (NEGATIVE); NITRITE,URINE NEGATIVE (NEGATIVE); OCCULT BLOOD,URINE NEGATIVE (NEGATIVE); PH,URINE 8.5 (5.0-9.0); PROTEIN,URINE NEGATIVE (NEGATIVE); UROBILINOGEN,URINE 0.2 mg/dL (0.2-1.0)
[2022-11-04 01:38] LABS: METHAMPHETAMINES,URINE POSITIVE (NEGATIVE)
[2022-11-04 01:39] LABS: AMPHETAMINES,URINE POSITIVE (NEGATIVE); BARBITURATES,URINE NEGATIVE (NEGATIVE); BENZODIAZEPINE,URINE NEGATIVE (NEGATIVE); MDMA (ECSTASY), URINE NEGATIVE (NEGATIVE); METHADONE,URINE NEGATIVE (NEGATIVE); OPIATES,URINE NEGATIVE (NEGATIVE); OXYCODONE,URINE NEGATIVE (NEGATIVE); PHENCYCLIDINE,URINE NEGATIVE (NEGATIVE); TCA,URINE NEGATIVE (NEGATIVE)
[2022-11-04 01:52] LABS: A/G RATIO 1.2; ALBUMIN 4.2 g/dL (3.4-5.0); ANION GAP 15.5 mEq/L (7-13); BILIRUBIN TOTAL 0.3 mg/dL (0.2-1.0); CREATININE 0.88 mg/dL (0.70-1.30); EST CRCL DRUG DOSING (CG) 151.79 mL/min; POTASSIUM,K 3.5 mmol/L (3.5-5.1); PROTEIN TOTAL,TP 7.6 g/dL (6.4-8.2)
== END 2022-11-04 02:05 | disposition home or self-care (01) ==
LOC: DL.ED 00:52
DX: R11.2 Nausea with vomiting, unspecified (principal); F12.10 Cannabis abuse, uncomplicated; F15.10 Other stimulant abuse, uncomplicated; Z88.0 Allergy status to penicillin
CPT/HCPCS: 36415; 80053; 80305-QW; 80307; 81003; 84484; 85025; 93005; 93010; 99284; 99285

== ENCOUNTER 2023-01-21 21:48 | Emergency (ER) | payer SELFPAY ==
[2023-01-21] MEDS ORDERED: Bacitracin Oint 1 GM U/D Packet TOP ONE (22:16)
[2023-01-21 22:25] VITALS: BP 131/85; PULSE 88
== END 2023-01-21 23:13 | disposition home or self-care (01) ==
LOC: DL.ED 21:48
DX: S01.01XA Laceration without foreign body of scalp, initial encounter (principal); F17.210 Nicotine dependence, cigarettes, uncomplicated; Z88.0 Allergy status to penicillin; Y04.0XXA Assault by unarmed brawl or fight, initial encounter; Y92.830 Public park as the place of occurrence of the external cause
CPT/HCPCS: 12001; 93005; 93010; 99283; 99284; A9270

== ENCOUNTER 2023-02-25 05:48 | Emergency (ER) | payer SELFPAY ==
[2023-02-25 06:10] VITALS: BP 163/119; PULSE 71
[2023-02-25] MEDS ORDERED: Lactated Ringers 1,000 ML IV ONE (06:15)
[2023-02-25] MEDS ORDERED: Sodium Chloride 0.9% 10 ML Syringe FLUSH PRN (06:15)
[2023-02-25] MEDS ORDERED: Metoclopramide 10 MG/2 ML SDV IVPUSH ONE (06:18)
[2023-02-25 06:29] LABS: BASOPHILS PERCENT AUTO 0.2 % (0.0-1.0); HEMATOCRIT 44.5 % (40.0-54.0); HEMOGLOBIN 15.7 g/dL (14.0-18.0); LYMPHOCYTES PERCENT AUTO 11.1 % (20.5-50.1); MEAN CORPUSCULAR HEMOGLOBIN 29.7 pg (27.0-34.0); MEAN CORPUSCULAR HGB CONC 35.3 g/dL (33.0-35.0); MEAN CORPUSCULAR VOLUME 84.3 fL (80-100); MONOCYTES PERCENT AUTO 3.9 % (2-8); NEUTROPHILS PERCENT AUTO 84.8 % (42.2-75.2); PLATELET COUNT,PLT 343 10^3/uL (150-450); RED BLOOD CELL COUNT 5.28 10^6/uL (4.6-6.2); WHITE BLOOD CELL COUNT,WBC 8.5 10^3/uL (5.0-10.0)
[2023-02-25 06:48] LABS: A/G RATIO 1.2; ALANINE AMINOTRANSFERASE,ALT 44 U/L (16-63); ALBUMIN 4.7 g/dL (3.4-5.0); ALKALINE PHOSPHATASE 103 U/L (46-116); ASPARTATE AMNIOTRANSFERASE,AST 29 U/L (15-37); BILIRUBIN TOTAL 0.5 mg/dL (0.2-1.0); BLOOD UREA NITROGEN,BUN 10 mg/dL (7-18); BUN/CREATININE RATIO 9.4 (No establ ref range); CARBON DIOXIDE,CO2 24 mmol/L (21-32); CHLORIDE,CL 101 mmol/L (98-107); CREATININE 1.06 mg/dL (0.70-1.30); EST CRCL DRUG DOSING (CG) 126.01 mL/min; ESTIMATED GFR 101 mL/min (>=60); ETHANOL BLOOD MEDICAL < 3 mg/dL (0); GLUCOSE RANDOM 161 mg/dL (70-99); MAGNESIUM 1.7 mg/dL (1.8-2.4); PROTEIN TOTAL,TP 8.6 g/dL (6.4-8.2); SODIUM,NA 142 mmol/L (136-145)
[2023-02-25 06:57] LABS: APPEARANCE,URINE CLEAR (CLEAR); BILIRUBIN,URINE NEGATIVE (NEGATIVE); COLOR,URINE YELLOW (YELLOW); GLUCOSE,URINE NEGATIVE (NEGATIVE); KETONES,URINE 15 (NEGATIVE); LEUKOCYTE ESTERASE,URINE NEGATIVE (NEGATIVE); NITRITE,URINE NEGATIVE (NEGATIVE); OCCULT BLOOD,URINE NEGATIVE (NEGATIVE); PH,URINE >= 9.0 (5.0-9.0); PROTEIN,URINE 100 (NEGATIVE); UROBILINOGEN,URINE 0.2 mg/dL (0.2-1.0)
[2023-02-25 06:58] LABS: AMPHETAMINES,URINE NEGATIVE (NEGATIVE); BARBITURATES,URINE NEGATIVE (NEGATIVE); BENZODIAZEPINE,URINE NEGATIVE (NEGATIVE); MDMA (ECSTASY), URINE NEGATIVE (NEGATIVE); METHADONE,URINE NEGATIVE (NEGATIVE); METHAMPHETAMINES,URINE NEGATIVE (NEGATIVE); OPIATES,URINE NEGATIVE (NEGATIVE); OXYCODONE,URINE NEGATIVE (NEGATIVE); PHENCYCLIDINE,URINE NEGATIVE (NEGATIVE); TCA,URINE NEGATIVE (NEGATIVE)
[2023-02-25 07:07] LABS: BACTERIA,URINE RARE /HPF (0-FEW/HPF); EPITHELIAL CELLS,URINE RARE /HPF (NOT SEEN); RBC,URINE 0-5 /HPF (0-5); WBC,URINE NOT SEEN /HPF (0-5/HPF)
[2023-02-25] MEDS ORDERED: Ondansetron 4 MG/2 ML SDV IV ONE (07:13)
[2023-02-25] MEDS ORDERED: Famotidine 20 MG/2 ML SDV IVPUSH ONE (07:13)
[2023-02-25] MEDS ORDERED: Sodium Chloride 0.9% 1,000 ML IV ONE (07:13)
[2023-02-25] MEDS ORDERED: Take Home: Ondansetron 4 MG Tab.DIS, 5 Tab Pack PO ONE (08:00)
== END 2023-02-25 08:17 | disposition home or self-care (01) ==
LOC: DL.ED 05:48
DX: K29.00 Acute gastritis without bleeding (principal); R73.9 Hyperglycemia, unspecified; Z88.0 Allergy status to penicillin; Z72.0 Tobacco use
CPT/HCPCS: 36415; 80053; 80305; 80307; 81001; 83735; 85025; 96361; 96374; 96375; 99284; J2405; J2765; J3490; J7030; J7120; Q0162